=== PATIENT | female | born 1940 | race African-American/Black ===

== ENCOUNTER 2023-07-20 03:58 | Day surgery (SDC) | payer OTHER ==
[2023-07-14 14:36] VITALS: BMI 22.6
[2023-07-20] MEDS: LIDOCAINE HCL 1% PRESERVATIVE FREE - 30ML VIAL IJ ONE
[2023-07-20 07:01] VITALS: BP 143/80; PULSE 78; RESP 20; TEMP 97.7
[2023-07-20] MEDS ORDERED: LIDOCAINE HCL/PF 1% SDV 5ML VIAL ONE (07:10)
[2023-07-20] MEDS ORDERED: ACETAMINOPHEN 500 MG TABLET (FP) PO PRN (12:12)
== END 2023-07-20 10:15 | disposition home or self-care (01) ==
LOC: JASU-SURG 03:58
PROVIDERS: ATTEND Pain Medicine Pain Medicine
DX: Z53.8 Procedure and treatment not carried out for other reasons (principal)
CPT/HCPCS: 82962